=== PATIENT | female | born 1990 | race Two or more races ===

== ENCOUNTER 2024-04-01 12:00 | Observation (INO) | payer OTHER ==
[2024-04-01] MEDS ORDERED: METF-370 PO (12:22)
--- NOTE | 2024-04-01 18:58 | DVHDS2 ---
Physician Discharge Progress N Final Diagnosis: vag pain Operations or Procedures: Operations or Procedures nst,sono Condition on Discharge: Good Disposition: Home Discharge Instructions: Diet: Consistent carbohydrate Activity: No Restrictions, As Tolerated Follow Up/Referral: Please follow up with primary OBGYN as soon as possible Medications: Continue all prescription medications exactly as prescribed. Follow Up Care: Specialist: 2d Discharge Statement: "Patient was advised to return to the ER or call 911 if any headaches, dizziness, shortness of breath, chest pain, abdominal pain, bleeding, fevers, or worsening of medical condition. Patient was counseled about treatment plan, medications, possible side effects, patientverbalized understanding. All questions were answered to the best of my ability. This discharge took greater then 30 minutes in planning, reviewing documentation, counseling the patient, and discussing with other team members." JULIANO MATTHEW DO Apr 01, 2024 18:58
== END 2024-04-01 13:16 | disposition home or self-care (01) ==
LOC: LDRP 12:00
PROVIDERS: ADMIT Obstetrics & Gynecology; ATTEND Obstetrics & Gynecology
DX: O26.893 Other specified pregnancy related conditions, third trimester (principal); N89.8 Other specified noninflammatory disorders of vagina; R10.2 Pelvic and perineal pain; M79.605 Pain in left leg; O24.419 Gestational diabetes mellitus in pregnancy, unspecified control; Z3A.36 36 weeks gestation of pregnancy; Z79.899 Other long term (current) drug therapy
CPT/HCPCS: 59025; 81002; 82948; 82962; 94760; G0378